=== PATIENT | female | born 1945 | race Caucasian/White ===

== ENCOUNTER 2016-07-03 18:30 | Emergency (ER) | payer MEDICARE, OTHER ==
[~2016-07-03] VITALS: Ht 160 cm; Wt 93.2 kg
[~2016-07-03 18:30] MED LIST changes: -ACHYD1T PO; -CYCL10TA45 PO; -NITR100C3 PO; -ROPI1TAB2 PO
--- OUTSIDE RECORDS SUMMARY | 2016-07-03 18:34 | XMS REPORT | Summary of Care ---
Author Author Ga Mishra, Esthela J Organization Unknown Address [address] [place], [place] [id number] Phone Unavailable Care Team Providers Care Sample Tester Name Role Phone Jenn Crisostomo Unavailable Unavailable Unavailable Unavailable Functional Status Functional Status Health Issues Name Dates Details No known functional status health issues Status: Cognitive Status Health Issues Name Dates Details No known cognitive status health issues Status: Problems Name Dates Details Benign essential hypertension (401.1, I10) Status: Active Chronic pain (338.29, G89.29) Status: Active Obstructive sleep apnea (327.23, G47.33) Status: Active 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 Refills: 0 Started 18-Jan-2011 ActiveZolpidem Tartrate 10 MG Oral Tablet TAKE ONE TABLET BY MOUTH EVERY DAY AT BEDTIME Quantity: 30 Tablet Refills: 5 Started 08-Apr-2012 [employer] Auto CPAP 8-12 cm H2O pressure Refills: 0 Started 20-Nov-2012 [employer] CPAP repair, services, and supplies (ve=783.23)Mask, headgear, filters, heated tubing, chinstrap Quantity: 1 Refills: 0 Started 20-Nov-2012 [employer] CPAP repair, services and supplies, 327.23 Mask, headgear, filters, heated tubing, chinstrap Quantity: 1 Refills: 0 Started 07-Apr-2013 Active Allergies and Adverse Reactions Name Dates Details Elavil TABS Status: Active Procedures Procedure Dates Details Back Surgery Procedures not documented Immunization Name Dates Details Immunizations not documented Family History Brother Name Dates Details Obstructive Sleep Apnea Status: Active Social History Name Dates Details Never smoker Smoking StatusNever smoker Vital Signs Date Test Result Details No Known Vitals to report Results Date Description Value Details Results not documented Plan of Care InstructionsInstructions not documentedPlanned Observations Name Dates Details Planned Goals not documented Goal Planned Encounters Appointment; Provider: Neymar Torres On 08-Apr-2014 13:45 Appointment; Provider: Erica Goodson On 12-Oct-2013 13:30 Appointment; Provider: Neymar Torres On 18:00 Instructions No Known Instructions Encounters Appointment; August Encounter Diagnosis: Problem not documented On 12-Oct-2013 09:30 Appointment; Neymar Torres Encounter Diagnosis: Problem not documented On 07-Apr-2013 14:45 Appointment; Neymar Torres Encounter Diagnosis: Problem not documented On 20-Nov-2012 15:15 Appointment; Neymar Torres Encounter Diagnosis: Problem not documented On 14:00 Appointment; Neymar Torres Encounter Diagnosis: Problem not documented On 17-Jul-2012 14:15 Appointment; Neymar Torres Encounter Diagnosis: Problem not documented On 08-Apr-2012 13:45
--- OUTSIDE RECORDS SUMMARY | 2016-07-03 18:34 | XMS REPORT ---
Author Author Neymar Torres O Organization Unknown Address [address], [place] [id number] Phone Care Team Providers Care Sprinkler Worker Name Role Phone [facility], [facility] Unavailable Unavailable Reason for Referral No Reason for Referral was given. History of Present Illness No HPI available. Problems Normal Routine History And Physical Senior Citizen (65-80) (V70.0); ( Active) Benign Essential Hypertension (401.1); (Active) Obstructive Sleep Apnea (327.23); (Active) Organic Insomnia (327.00); (Active) Medication Cymbalta 60 MG Oral Capsule Delayed Release Particles; TAKE 1 CAPSULE DAILY.; Start Date: 01/18/2011 (Active)Ambien 10 MG Oral Tablet; TAKE 1 TABLET DAILY AT BEDTIME.; Start Date: 04/08/2012 (Active)Supplies; Auto CPAP 6-10 cm H2O pressure; Start Date: 04/08/2012 (Active) Allergies and Adverse Reactions No Known Allergies (Active) Past Medical History No Significant Medical History Procedures Procedure Procedure Date Date Completed Status Back Surgery - - Active Family History Fraternal history of Obstructive Sleep Apnea (Active) Social History Never A Smoker (Active) Marital History - Currently ( Active) Racial Background (___ %) (Active) Advance Directives No Advance Directives available. Encounters Appointment 07/17/2012 GABRIEL , Provider: Brian Blackmon, Status: Luis Enrique , Time: 2:45 PM 04/07/2013
[2016-07-03] MEDS ORDERED: SODIUM CHLORIDE 250 ML IV PRN (19:05)
[2016-07-03] MEDS ORDERED: SODIUM CHLORIDE FLUSH 3 ML SYR IV PRN (19:05)
[2016-07-03] MEDS ORDERED: SODIUM CHLORIDE FLUSH 10 ML SYR IV PRN (19:05)
[2016-07-03 19:16] LABS: BASOPHILS % (AUTO) 1 % (0-2); EOSINOPHILS # (AUTO) 0.4 10^3uL; EOSINOPHILS % (AUTO) 5 % (0-4); MEAN CORPUSCULAR HEMOGLOBIN 28.3 PG (26.0-34.0); MEAN CORPUSCULAR VOLUME 90 FL (80-100); MEAN PLATELET VOLUME 9.9 FL (6.0-9.5); MONOCYTES # (AUTO) 0.9 X10^3; MONOCYTES % (AUTO) 12 % (3-11); NEUTROPHILS % (AUTO) 55 % (51-67); PLATELET COUNT 417 10^3uL (150-450); WHITE BLOOD COUNT 7.24 10^3uL (4.0-11.0)
[2016-07-03 19:25] LABS: MEAN CORPUSCULAR HGB CONC 31.5 g/dL (31.0-37.0)
[2016-07-03 19:28] LABS: ALBUMIN 3.8 g/dL (3.4-5.0); ANION GAP 15.2 MEQ/L (3-15); CALCULATED IONIZED CALCIUM 4.1 mg/dL (3.8-4.6)
[2016-07-03 19:28] LABS: BILIRUBIN,URINE Negative (Negative); CLARITY,URINE Clear; COLOR,URINE Yellow; GLUCOSE, URINE (UA) Negative (Negative); LEUKOCYTE ESTERASE ,URINE 1+ (Negative); PH,URINE 6.5 (5.0 - 8.0); UROBILINOGEN,URINE 0.2 mg/dL (0.2-1.0)
[2016-07-03 19:36] LABS: RBC,URINE None Seen /HPF; URINE CENTRIFUGED VOLUME 12 mL
[2016-07-03] MEDS ORDERED: ACHYD1T PO (19:42)
[2016-07-03] MEDS ORDERED: CYCL10TA45 PO (19:42)
[2016-07-03] MEDS ORDERED: ROPI1TAB2 PO (19:42)
--- NOTE | 2016-07-03 20:30 | Diagnostic Imaging Report ---
Clinical indication: Patient with left-sided weakness. Exam: Portable chest x-ray upright view. Comparisons: None. Findings: Lungs/pleura: Lungs are clear. There is no pneumothorax. There is no pleural effusion. Mediastinum: Unremarkable. Pulmonary vasculature: Unremarkable. Heart: Unremarkable. Bones/extrathoracic soft tissue: Unremarkable. Impression: There is no radiographic evidence of acute cardiopulmonary process. Dictated by: Dictated on workstation # [id number]
[2016-07-03] MEDS ORDERED: NITR100C3 PO (20:36)
[2016-07-03] MEDS ORDERED: NITROFURANTOIN 100 MG (MACROBID) CAPSULE PO ONE (20:40)
[2016-07-03 20:57] VITALS: BP 153/59
== END 2016-07-03 20:51 | disposition home or self-care (01) ==
LOC: ED 18:32
DX: R20.8 Other disturbances of skin sensation (principal); N39.0 Urinary tract infection, site not specified
CPT/HCPCS: 36415; 71010; 80053; 81003; 81015; 82550; 82553; 83735; 84484; 85025; 85610; 85730; 87077; 87088; 87186; 93005; 99285; A9270; 93010; 99284

== ENCOUNTER → 2016-07-03 | Outpatient (CLI) | payer MEDICARE, OTHER ==
[~2016-07-03] MED LIST: ACHYD1T PO; CYCL10TA45 PO; DULO30CA PO; NITR100C3 PO; ROPI1TAB2 PO; ZLP5T PO; ZOLP10TA PO; [UNRECOGNIZED DRUG - CODE] PO
== END ==
LOC: EMS 18:33
PROVIDERS: ATTEND Emergency Medicine
DX: I63.9 Cerebral infarction, unspecified (principal)